=== PATIENT | female | born 1975 ===

== ENCOUNTER 2019-04-29 07:50 | Emergency (ER) | payer OTHER ==
[~2019-04-29] VITALS: Ht 157.5 cm; Wt 71.2 kg
[2019-04-29] MEDS ORDERED: VERAPAMIL ER240 MG (08:10)
[2019-04-29] MEDS ORDERED: ELAVIL (08:12)
[2019-04-29] MEDS ORDERED: MECLIZINE HCL25 MG PO (13:36)
== END 2019-04-29 14:04 | disposition home or self-care (01) ==
LOC: ER 07:50
DX: R42 Dizziness and giddiness (principal)

== ENCOUNTER 2020-01-23 22:45 | Emergency (ER) | payer OTHER | END 2020-01-24 04:05 | disposition home or self-care (01) | LOC: ER 22:45 | DX: K80.50 Calculus of bile duct without cholangitis or cholecystitis without obstruction (principal); K80.80 Other cholelithiasis without obstruction; R10.13 Epigastric pain ==

== ENCOUNTER 2020-01-28 06:09 | Day surgery (SDC) | payer OTHER ==
[~2020-01-28 06:09] MED LIST: ELAVIL; KETO10TA2 PO; LEVSIN PO; LEVSIN0.125 MG; MECLIZINE HCL25 MG PO; PEPCID AC20 MG PO; PEPCID PO; VERAPAMIL ER240 MG; ZIAC; ZIAC 2.5-6.251 EACH PO
== END 2020-01-28 17:10 | disposition home or self-care (01) ==
LOC: CIR.AMB 06:09 → SURH 12:00 → EDSTATUS 12:16 → CIR.AMB 12:18
PROVIDERS: ATTEND Specialist
DX: K80.10 Calculus of gallbladder with chronic cholecystitis without obstruction (principal)

== ENCOUNTER 2021-01-02 08:00 | Outpatient (CLI) | payer OTHER | END 2021-01-02 08:30 | disposition home or self-care (01) | LOC: PPH VACUNA 08:00 | DX: Z23 Encounter for immunization (principal) ==

== ENCOUNTER 2021-07-20 09:00 | Outpatient (CLI) | payer OTHER | END 2021-07-20 09:30 | disposition home or self-care (01) | LOC: PPH VACUNA 09:00 | PROVIDERS: ATTEND Emergency Medicine Pediatric Emergency Medicine | DX: Z23 Encounter for immunization (principal) ==